=== PATIENT | male | born 1970 | race Hispanic/Latino ===

== ENCOUNTER 2018-08-23 09:40 | Emergency (ER) | payer OTHER ==
[2018-08-23] MEDS ORDERED: CYCLOBENZAPRINE HCL 10 MG TABLET ONE (10:48)
[2018-08-23] MEDS ORDERED: IBUPROFEN 600 MG TABLET ONE (10:48)
[2018-08-23] MEDS ORDERED: ACETAMINOPHEN-CODEINE 300/30MG TAB ONE ×2 (10:49→10:53)
== END 2018-08-23 11:05 | disposition home or self-care (01) ==
LOC: EDH 09:40
DX: S13.8XXA Sprain of joints and ligaments of other parts of neck, initial encounter (principal); S80.01XA Contusion of right knee, initial encounter; S20.20XA Contusion of thorax, unspecified, initial encounter; E11.9 Type 2 diabetes mellitus without complications; I10 Essential (primary) hypertension; V49.59XA Passenger injured in collision with other motor vehicles in traffic accident, initial encounter; Y93.89 Activity, other specified; Y92.89 Other specified places as the place of occurrence of the external cause; Y99.8 Other external cause status
CPT/HCPCS: 71045; 72040; 73562